=== PATIENT | female | born 1955 | race Caucasian/White ===

== ENCOUNTER 2017-01-14 10:47 | Outpatient (CLI) | payer OTHER ==
--- NOTE | 2017-01-14 20:08 | MRI Report ---
EXAM: MRI LUMBAR SPINE WITHOUT CONTRAST EXAM DATE: 01/14/2017 11:38 AM. CLINICAL HISTORY: LOW BACK PAIN. COMPARISON: None. TECHNIQUE: Multiplanar, multisequence T1-weighted and fluid-sensitive sequences of the lumbar spine f rom T12 to S1 without contrast. Other: None. FINDINGS: Spinal Cord: The conus terminates at T12-L1 no signal abnormality in the visualized spinal cord. Alignment: Moderate rotatory lumbar levoscoliosis with the apex at L2-L3 level, with Donaldson angle of 16 degrees. Bone Marrow: Five [id number] lumbar vertebral bodies are assumed. no gross fractures. The T1 in termediate and T2 hyperintense lesion associated with the left pedicle of T12 is favored to represent a benign hemangioma. The bone marrow is diffusely heterogeneous, likely representing fatty replaceme nt of the marrow. NO bone marrow edema. Disk Levels/Facets: T12-L1: Mild disk bulge. Mild anterior dural compression. No significant central canal or neuroforami nal narrowing. L1-L2: Mild disk bulge. Mild anterior dural compression. No significant central canal narrowing. No n euroforaminal narrowing. L2-L3: Mild diffuse disk bulge. Mild anterior dural compression. No significant central canal narrowi ng. No neuroforaminal narrowing. L3-L4: Mild diffuse disk bulge. Mild bilateral facet arthropathy. Mild anterior dural compression. No significant central canal narrowing. No neuroforaminal narrowing. L4-L5: Large diffuse disk bulge with superimposed bilateral foraminal protrusions. Moderate to severe bilateral facet arthropathy. Moderate to severe central canal narrowing. Severe right and moderate l eft neuroforaminal narrowing. Likely at least mild bilateral lateral recess narrowing with mass effec t on traversing bilateral L5 nerves. L5-S1: Moderate diffuse disk bulge with superimposed left subarticular protrusion. Moderate bilateral facet arthropathy. Extensive epidural lipomatosis. The epidural lipomatosis results in severe centra l canal narrowing. Mild right and severe left neuroforaminal narrowing. Moderate left lateral recess narrowing with mass effect on traversing left S1 nerve. Musculature: Normal. No edema or fatty atrophy. Other: The visualized pelvic cavity is unremarkable. IMPRESSION: 1. Moderate multilevel degenerative spondylosis, as detailed above and summarized below, with the mos t significant levels being L4-L5 and L5-S1. No evidence of acute fracture or bone marrow edema. Likel y a hemangioma within the left pedicle of T12. 2. Moderate rotatory lumbar levoscoliosis with the apex at L2-L3 level, with Donaldson angle of 16 degrees . 3. L4-L5 level demonstrates moderate to severe central canal narrowing. Severe right and moderate lef t neuroforaminal narrowing. Likely at least mild bilateral lateral recess narrowing with mass effect on traversing bilateral L5 nerves. 4. L5-S1 level demonstrates extensive epidural lipomatosis. The epidural lipomatosis results in sever e central canal narrowing. Mild right and severe left neuroforaminal narrowing. Moderate left lateral recess narrowing with mass effect on traversing left S1 nerve. Comment: The following findings are so common in adults without low back pain that while we report th eir presence, they must be interpreted with caution and in the context of the clinical situation. (Re sherry Spring et al, Spine 2001) Prevalence of findings in patients without low back pain: Disk degeneration (any evidence): 92% Disk desiccation/T2 signal loss: 83% Disk height loss: 56% Disk bulge: 64% Disk protrusion: 32% Annular tear/high intensity zone: 38% [facility] Referring Provider Line: [phone] SITE ID: [id number]
== END 2017-01-14 10:48 | disposition home or self-care (01) ==
LOC: DI 10:47
PROVIDERS: ATTEND Nurse Practitioner Family
DX: M51.26 Other intervertebral disc displacement, lumbar region (principal); M47.896 Other spondylosis, lumbar region; M51.27 Other intervertebral disc displacement, lumbosacral region; M41.86 Other forms of scoliosis, lumbar region; E88.2 Lipomatosis, not elsewhere classified
CPT/HCPCS: 72148

== ENCOUNTER 2022-09-30 07:33 | Day surgery (SDC) | payer MEDICARE, OTHER ==
[~2022-09-30 07:33] MED LIST: BRIMONIDINE 0.2% OPHTH DROPS 5 ML ONE; BSS/LIDOCAINE/EPINEPHRINE 1 ML VIAL ONE; CYCLOPENTOLATE 1% OPHTH DROPS 2 ML ONE; EPINEPHrine 1 MG/ML AMP ONE; KETOROLAC 0.45% OPHTH DROPS ONE; LACTATED RINGERS 1,000 ML IV ONE; PHENYLEPHRINE 2.5% OPHTH 2 ML DROPS ONE; PROPARACAINE 0.5% OPHTH DROPS 15 ML ONE; TIMOLOL 0.5% OPHTH DROPS ONE; TRIAMCIN/MOXIFLOX OPHTHALMIC 0.6 ML VIAL IO ONE; VANCOMYCIN OPHTH (TOPICAL) 10 MG/ML SYRINGE ONE
--- NOTE | 2022-09-30 08:26 | ANESTHESIA ---
Pre-Anesthesia VS, & Labs - Diagnosis R cataract - Procedure R PhacoIOL Vital Signs: Temp Pulse Resp BP Pulse Ox O2 Flow Rate 36.4 C L 73 16 166/89 H 98 09/30/22 07:42 09/30/22 07:42 09/30/22 07:42 09/30/22 07:42 09/30/22 07:42 Height: 4 ft 10 in Weight (kg): 86 kg Body Mass Index: 39.6 BMI Classification: Obese - NPO >8 hours - Is Patient ?: No - Lab Results Current Lab Results: Laboratory Tests 09/30/22 08:00: POC Whole Bld Glucose 138 H Home Medications and Allergies Home Medications: Ambulatory Orders Dulaglutide [Trulicity] 1.5 mg SQ ONCE 09/29/22 Metoprolol Tartrate [Lopressor] 200 mg PO DAILY 09/29/22 Simvastatin [Zocor] 40 mg PO DAILY 09/29/22 Losartan Potassium 50 mg PO DAILY 09/30/22 Dulaglutide [Trulicity] 1.5 mg SQ ONCE 09/29/22 Metoprolol Tartrate [Lopressor] 200 mg PO DAILY 09/29/22 Simvastatin [Zocor] 40 mg PO DAILY 09/29/22 Losartan Potassium 50 mg PO DAILY 09/30/22 Allergies/Adverse Reactions: Allergies Allergy/AdvReac Type Severity Reaction Status Date / Time No Known Drug Allergies Allergy Verified 09/29/22 13:03 Anes History & Medical History - Anesthetic History Anesthesia Complications: reports: No previous complications Family history of Anesthesia Complications: Denies Family history of Malignant Hyperthermia: Denies - Medical History Cardiovascular: reports: Hypertension, High cholesterol Pulmonary: reports: None Gastrointestinal: reports: Chronic constipation Urinary: reports: None Musculoskeletal: reports: Osteoarthritis Endocrine/Autoimmune: reports: Type 2 diabetes Skin: reports: None - Surgical History Eyes Ears Nose Throat (EENT): reports: Tonsil/Adenoidectomy Gynecologic: reports: section, Hysterectomy Exam General: Alert, Oriented x3, Cooperative Dental: WNL Mouth Openin Fingerbreadth Neck Mobility: Normal Mallampati classification: III Thyromental Distance: 4-6 cm Respiratory: Lungs clear Cardiovascular: Regular rate Plan Anesthesia Type: MAC Consent for Procedure(s) Verified and Reviewed: Yes Code Status: Attempt Resuscitation ASA classification: 2-Mild systemic disease Is this case an emergency?: No
[2022-09-30] MEDS ORDERED: MIDAZOLAM 2 MG/2 ML VIAL ONE (08:55)
[2022-09-30] MEDS ORDERED: TIMOLOL 0.5% OPHTH DROPS OPTH ONE (09:01)
[2022-09-30] MEDS ORDERED: BSS/LIDOCAINE/EPINEPHRINE 1 ML SYRINGE IO ONE (09:01)
[2022-09-30] MEDS ORDERED: BRIMONIDINE 0.2% OPHTH DROPS 5 ML OPTH ONE (09:01)
[2022-09-30] MEDS ORDERED: EPINEPHrine 1 MG/ML AMP IR ONE (09:01)
[2022-09-30] MEDS ORDERED: VANCOMYCIN OPHTH (TOPICAL) 10 MG/ML SYRINGE TOP ONE (09:02)
[2022-09-30] MEDS ORDERED: TRIAMCIN/MOXIFLOX OPHTHALMIC 0.6 ML VIAL IO ONE (09:02)
[2022-09-30] MEDS ORDERED: PROPARACAINE 0.5% OPHTH DROPS 15 ML RIGHTEYE ONE (09:02)
[2022-09-30] MEDS ORDERED: LACTATED RINGERS 800 ML IV ONE (09:22)
--- NOTE | 2022-09-30 09:26 | OPERATIVE REPORT ---
Operative Report - Other Other Information/Narrative: Date of Surgery: 09/30/22 Preop Dx: Visually significant cataract right eye. This was the first cataract surgery. Postop Dx: Same Procedure: Phacoemulsification with posterior chamber toric intraocular lens implant right eye Surgeon: Dr. Berhane Urena Anesthesia: Monitored anesthesia care Complications: None Operative Indications: This is a 67-year-old F with progressive vision loss in the right eye due to 3+ nuclear sclerotic cataract. Best corrected visual acuity was 20/30 with glare to 20/80 vision in the right eye. Indications for surgery were: - Overall decrease in vision - Difficulty seeing street signs - Difficulty with glare or bright lights in any situation The patient was consented at length concerning the risks and benefits of cataract surgery after which the patient expressed a desire to proceed with surgery. Operative Procedure: The patients cornea was marked in the pre-surgical area to indicate the axis for the toric intraocular lens. The patient was taken into OR#3 and placed under monitored anesthesia care. A surgical time-out was conducted confirming correct patient, correct procedure, and correct surgical site. The patient was given topical anesthesia and then prepped and draped in the usual sterile fashion. The eye was entered at the 6 and 3 oclock positions. Intracameral Shugarcaine was injected into the anterior chamber followed by a dispersive viscoelastic. A continuous-tear curvilinear capsulorhexis was performed. The nucleus was hydrodissected and phacoemulsified. The cortex was evacuated using automated infusion and aspiration. A cohesive viscoelastic was injected into the capsular bag and a 24.5 diopter toric intraocular lens was inserted into the bag and rotated to axis 096. Infusion and aspiration were used to evacuate the viscoelastic materials from the eye and the IOL was verified to remain on axis. The wounds were hydrated and the eye inflated to physiologic pressure using balanced salt solution. Approximately 0.25ml of a mixture of triamcinolone and moxifloxacin was injected trans- sclerally into the vitreous in the inferotemporal quadrant using a 30 gauge cannula. An additional 0.25ml of a mixture of triamcinolone and moxifloxacin was injected subconjunctivally in the superior quadrant for infection and inflammation prophylaxis. Wound integrity was checked with Weck-Marta sponges and the IOL axis was once again verified to be on the correct axis. The patient was taken from the operating room in good condition and given post-op instructions.
[2022-09-30 09:32] VITALS: BP 140/76
--- NOTE | 2022-09-30 16:44 | ANESTHESIA POST OP EVALUATION ---
Anesthesia Post Eval - Post Anesthesia Eval Vitals: Last Vital Signs Temp 36.4 C L 09/30/22 09:30 Pulse 73 09/30/22 09:30 Resp 16 09/30/22 09:30 BP 140/76 H 09/30/22 09:30 Pulse Ox 96 09/30/22 09:30 O2 Flow Rate CV Function Including HR & BP: Stable Pain Control: Satisfactory Nausea & Vomiting: Negative Mental Status: Baseline Respiratory Status: Airway Patent Hydration Status: Satisfactory Anesthesia Complications: None
== END 2022-09-30 07:34 | disposition home or self-care (01) ==
LOC: SDS 07:33
PROVIDERS: ATTEND Ophthalmology
DX: E11.36 Type 2 diabetes mellitus with diabetic cataract (principal); H25.11 Age-related nuclear cataract, right eye; Z79.85 Long-term (current) use of injectable non-insulin antidiabetic drugs; E66.9 Obesity, unspecified; Z68.39 Body mass index [BMI] 39.0-39.9, adult
CPT/HCPCS: 66984; A9270; J3490; J7120; V2632; V2787

== ENCOUNTER 2024-02-20 10:55 | Outpatient (CLI) | payer MEDICARE, OTHER ==
--- NOTE | 2024-02-20 16:26 | XRAY Report ---
PROCEDURE: Ankle 3+V LT INDICATIONS: PAIN IN LEFT ANKLE AND JOINTS OF LEFT FOOT TECHNIQUE: 2 views of the ankle were acquired. COMPARISON: None. FINDINGS: Bones: No fracture or subluxation is seen. The ankle mortise appears intact. Soft tissues: Diffuse ill-defined soft tissue swelling is seen about the ankle. IMPRESSION: No acute osseous abnormality seen. Reviewed by: Noe Soto MD on 02/20/2024 4:24 PM PDT Approved by: Noe Soto MD on 02/20/2024 4:24 PM PDT Station ID: [id number]
== END 2024-02-20 10:56 | disposition home or self-care (01) ==
LOC: DI.N 10:55
PROVIDERS: ATTEND Family Medicine
DX: M25.572 Pain in left ankle and joints of left foot (principal)